=== PATIENT | male | born 1970 | race American Indian/Alaskan Native ===

== ENCOUNTER 2017-11-22 21:12 | Emergency (ER) | payer MEDICAID | END 2017-11-22 23:43 | disposition left against medical advice (07) | LOC: DL.ED 21:12 | DX: Z53.21 Procedure and treatment not carried out due to patient leaving prior to being seen by health care provider (principal) | CPT/HCPCS: 82962 ==

== ENCOUNTER 2018-06-13 10:05 | Emergency (ER) | payer MEDICAID ==
--- NOTE | 2018-06-13 10:25 | EDM.PDOC ---
"ED HPI GENERAL MEDICAL PROBLEM - General Chief Complaint: Back Pain or Injury Stated Complaint: BACK PAIN [id number] Time Seen by Provider: 06/13/18 10:25 Source of Information: Reports: Patient, RN, RN Notes Reviewed History Limitations: Reports: No Limitations - History of Present Illness INITIAL COMMENTS - FREE TEXT/NARRATIVE: Pt presents to ER from home by POV with c/o neck and upper/middle back pain sustained 06/11/18 when [place]. He reports Hx of chronic neck and back pain with DDD and has been treated with epidural steroid injections and is on chronic oxycodone pain management. He came to the ER today because the pain from the neck has been radiating down the right arm to the finger tips. He denies LOC, N/V, loss of bowel or bladder control, saddle area numbness or motor weakness. Onset: Sudden Onset Date: 06/11/18 Duration: Constant Location: Reports: Neck, Back, Upper Extremity, Right Quality: Reports: Ache, Burning Severity: Severe Improves with: Reports: None Worsens with: Reports: Movement Associated Symptoms: Reports: No Other Symptoms Treatments [employer]: Reports: Other Medication(s) Middle Back Pain Score (Numeric/FACES): 8 - Related Data Allergies Allergy/AdvReac Type Severity Reaction Status Date / Time No Known Allergies Allergy Verified 06/13/18 10:32 Home Meds: Home Meds Naproxen Sodium [Aleve] 220 mg PO Q6H 06/13/18 [History] metFORMIN [Glucophage XR] 1,000 mg PO BIDMEALS 06/13/18 [History] oxyCODONE 5 mg PO Q6H 06/13/18 [History] Past Medical History Other Musculoskeletal History: Neck Artritis (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 Social & Family History - Family History Family Medical History: Noncontributory - Caffeine Use Caffeine Use: Reports: Coffee, Soda Caffeine Use Comment: He is trying to cut down his soda intake - Living Situation & Occupation Living situation: Reports: with Family Occupation: Employed ED ROS GENERAL - Review of Systems Review Of Systems: ROS reveals no pertinent complaints other than HPI. ED EXAM,LOWER BACK PAIN/INJURY - Physical Exam Exam: See Below Exam Limited By: No Limitations General Appearance: Alert, WD/WN, No Apparent Distress Head: Atraumatic, Normocephalic Neck: Supple, Limited Range of Motion, Tender Lateral (Rt paraspinal). No: Lymphadenopathy (L), Lymphadenopathy (R) Respiratory/Chest: No Respiratory Distress, Lungs Clear, Normal Breath Sounds, No Accessory Muscle Use, Chest Non-Tender Cardiovascular: Normal Peripheral Pulses, Regular Rate, Rhythm Back Exam: Decreased Range of Motion, Muscle Spasm (upper thoracic Rt>Left), Paraspinal Tenderness. No: CVA Tenderness (L), CVA Tenderness (R), Vertebral Tenderness Extremities: Normal Inspection, Normal Range of Motion, Non-Tender, No Pedal Edema, Normal Capillary Refill Neurological: Alert, Normal Mood/Affect, Normal Dorsiflexion, CN II-XII Intact, Normal Plantar Flexion, Normal Gait, No Motor/Sensory Deficits, Oriented x 3 Psychiatric: Normal Affect, Normal Mood Skin Exam: Warm, Dry, Intact, Normal Color, No Rash Course - Vital Signs Last Recorded V/S: Last Vital Signs Temp 37.3 C 06/13/18 10:26 Pulse 91 06/13/18 10:26 Resp 16 06/13/18 10:26 BP 136/81 06/13/18 10:26 Pulse Ox 99 06/13/18 10:26 - Radiology Interpretation Free Text/Narrative:: [facility] Final Radiology Report Call: [phone] assistance Online chat: [email or web address] Name: NILE GOVEA Age: 48Years M Date: 06/13/2018 SSN: -- : [id number] Study: XR SPINE CERVICAL 2 OR 3 VIEWS Requesting Physician: DANK ESCOBEDO Images: 3 Addl Studies: Provided Clinical History: Contrast: Contrast Medium: Contrast Amount: Contrast Method: Page 1 of 2 EXAM: XR Cervical Spine, 2 or 3 Views EXAM DATE/TIME: 06/13/2018 11:08 AM CLINICAL HISTORY: 48 years old, male; Signs and symptoms; Other: Fall, neck and upper back pain TECHNIQUE: XR of the cervical spine, 2 or 3 views. COMPARISON: No relevant prior studies available. FINDINGS: Vertebral body heights are intact. Alignment is maintained. The dens appears intact. No acute fracture is evident. The prevertebral soft tissues are not significantly swollen. There is mild multilevel facet arthrosis, disc space narrowing and marginal osteophyte formation. It is difficult to evaluate for osteophytic encroachment of the neural foramina without oblique views. IMPRESSION: 1. No acute fracture evident. CT would be more sensitive to and the exam of choice for the evaluation of such. 2. Mild degenerative disk disease which could be better evaluated by means of MRI as clinically indicated. NILE GOVEA | Final Radiology Report CONFIDENTIALITY STATEMENT This report is intended only for use by the referring physician, and only in accordance with law. If you received this in error, call [phone]. Page 2 of 2 Thank you for allowing us to participate in the care of your patient. Dictated and Authenticated by: Will Gibson MD 06/13/2018 12:06 PM Central Time ([place] & [place]) [facility] Final Radiology Report Call: [phone] assistance Online chat: [email or web address] Name: NILE GOVEA Age: 48Years M Date: 06/13/2018 SSN: -- : 1970 Study: XR SPINE THORACIC 2 VIEWS Requesting Physician: DANK ESCOBEDO Images: 2 Addl Studies: Provided Clinical History: Contrast: Contrast Medium: Contrast Amount: Contrast Method: Page 1 of 2 EXAM: XR Thoracic Spine, 2 Views EXAM DATE/TIME: 06/13/2018 11:18 AM CLINICAL HISTORY: 48 years old, male; Signs and symptoms; Other: Fall, neck and upper back pain TECHNIQUE: XR of the thoracic spine, 2 views. COMPARISON: No relevant prior studies available. FINDINGS: The upper thoracic vertebral bodies are not well visualized on the lateral view( s). Vertebral body heights are intact. Alignment is maintained. The pedicles appear intact. No acute fracture is identified. There is multilevel facet arthrosis, disc space narrowing and marginal osteophyte formation. The soft tissues appear grossly unremarkable. IMPRESSION: 1. No acute fracture identified. CT would be more sensitive to fracture as clinically appropriate. 2. Degenerative disk disease which could be better evaluated by means of MRI as clinically indicated. Thank you for allowing us to participate in the care of your patient. NILE GOVEA | Final Radiology Report CONFIDENTIALITY STATEMENT This report is intended only for use by the referring physician, and only in accordance with law. If you received this in error, call [phone]. Page 2 of 2 Dictated and Authenticated by: Will Gibson MD 06/13/2018 12:05 PM Central Time ([place] & [place]) Departure - Departure Time of Disposition: 12:14 Disposition: Home, Self-Care 01 Condition: Fair Clinical Impression: Cervical pain (neck), Right cervical radiculopathy, Spasm of thoracic back muscle Thoracic back pain Qualifiers: Chronicity: acute Back pain laterality: right Qualified Code(s): M54.6 - Pain in thoracic spine - Discharge Information *PRESCRIPTION DRUG MONITORING PROGRAM REVIEWED*: No *COPY OF PRESCRIPTION DRUG MONITORING REPORT IN PATIENT SILVANA: No Instructions: Back Pain, Adult, Cervical Radiculopathy, [id number] Forms: ED Department Discharge Additional Instructions: Rx: Decadron 4mg Rx: Cyclobenzaprine 10mg *Do not drive while under the influence of this medication. Follow up with your primary doctor or front office specialist if not improving by next week."
== END 2018-06-13 12:25 | disposition home or self-care (01) ==
LOC: DL.ED 10:05
DX: M54.12 Radiculopathy, cervical region (principal); M54.6 Pain in thoracic spine; M62.830 Muscle spasm of back; E11.9 Type 2 diabetes mellitus without complications; Z79.84 Long term (current) use of oral hypoglycemic drugs
CPT/HCPCS: 72040; 72070; 99283